=== PATIENT | female | born 1985 | race Caucasian/White ===

== ENCOUNTER → 2016-06-23 | Outpatient (CLI) | payer OTHER ==
[~2016-06-23] VITALS: Ht 160 cm; Wt 59.0 kg
[~2016-06-23] MED LIST: AUGMENTIN875 MG PO; FLONASE16 G1 BOTH NARES; INDOCIN25 MG PO; PREDNISONE20 MG PO; SPRINTEC1 EACH PO
[2016-06-23 13:28] LABS: HEMATOCRIT 37.9 % (36.0-46.0); MCV 84.2 FL (83-99)
== END | disposition home or self-care (01) ==
LOC: AMB 12:02
PROVIDERS: Anesthesiology
PROC: 0WJP8ZZ Inspection of Gastrointestinal Tract, Via Natural or Artificial Opening Endoscopic Approach (ICD-10-PCS; principal; 2016-06-23)
DX: K62.89 Other specified diseases of anus and rectum (principal); K64.8 Other hemorrhoids; D64.9 Anemia, unspecified; R19.8 Other specified symptoms and signs involving the digestive system and abdomen; Z87.09 Personal history of other diseases of the respiratory system
CPT/HCPCS: 85014; 85018; B4087; J2250; J2405